=== PATIENT | female | born 1950 | race Caucasian/White ===

== ENCOUNTER 2020-02-21 18:33 | Inpatient (IN) | payer MEDICARE, BC ==
[~2020-02-21] VITALS: Ht 170.2 cm; Wt 75.3 kg
--- NOTE | 2020-02-21 19:07 | NUR ---
received report from REBECCA Chaudhary pt in bed, awake A/Ox2. able to speak in complete sentences respirations even and unlabored no s/s of distress safety precaution in place. bed locked, lowest position. Instructed pt to call nurse for assistance will continue to monitor
--- NOTE | 2020-02-21 19:14 | NUR ---
Called for bed. [address]
[2020-02-21] MEDS ORDERED: IBUPROFEN 600 MG TABLET ONE (19:28)
[2020-02-21] MEDS ORDERED: ESCI10TA55 PO (19:30)
[2020-02-21] MEDS ORDERED: LORA2TAB95 PO (19:30)
[2020-02-21] MEDS ORDERED: ALBU8.5H8 INH (19:30)
[2020-02-21] MEDS ORDERED: SUCR1TAB PO ×2 (19:30)
[2020-02-21] MEDS ORDERED: QUET100T PO (19:30)
[2020-02-21] MEDS ORDERED: IBUP-1953 PO (19:30)
[2020-02-21] MEDS ORDERED: PANT40TA4 PO (19:30)
[2020-02-21] MEDS ORDERED: MONT10TA27 PO (19:30)
[2020-02-21] MEDS ORDERED: FOLI0.4T2 PO (19:30)
[2020-02-21] MEDS ORDERED: IBUPROFEN 600 MG TABLET PO ONE (19:30)
[2020-02-21] MEDS ORDERED: THIA100T74 PO (19:30)
--- NOTE | 2020-02-21 19:48 | NUR ---
Report given to REBECCA Julian
[2020-02-21 20:00] VITALS: BP 168/81
[2020-02-21] MEDS ORDERED: IBUPROFEN 400 MG TABLET PO PRN (20:00)
--- NOTE | 2020-02-21 20:09 | NUR ---
Pt. admitted to [facility] , under care of Dr. Mendez/EPIC: Magui, CIRCLE CUTTING SAW OPERATOR Belongs List completed. All belongings with pt aa/ox2. able to speak in complete sentences ambulatory with steady gait no s/s of distress transported pt via gurney
[2020-02-21 20:30] VITALS: BP 170/73
[2020-02-21] MEDS ORDERED: MAG HYDROX/AL HYDROX/SIMETH 30 ML LIQUID UDC PO PRN (20:45)
[2020-02-21] MEDS ORDERED: MAGNESIUM HYDROXIDE 30 ML LIQUID UDC PO PRN (20:45)
[2020-02-21] MEDS ORDERED: BLOOD SUGAR DIAGNOSTIC 1 EACH STRIP VI ONE (20:45)
[2020-02-21] MEDS: SUCRALFATE 1 G TABLET PO SCH (21:00)
[2020-02-21] MEDS: CLONAZEPAM 0.5 MG TABLET PO PRN (21:37)
--- NOTE | 2020-02-21 21:39 | NUR ---
Admission Note: 69 yr old female brought to MHU from ER via gurney by staff. Pt admitted on a 5150 for Grave Disability under the care of Dr Mendez and Lori Kilgore, MACHINE STAPLER VS stable. According to the hold, patient was taken to [facility] Emergency Room by a friend for intermittent psychosis and unable to provide care for self. Patient has a history of Bipolar disorder, depression, chronic lumbar radiculopathy s/p lumbar fusion, cirrhosis, Gerd /Barretts esophagus, heavy ETOH use, current smoker, COPD, chronic pain disorder. Patient was provided with Patient's Rights handbook, oriented to the unit as well as room. Plan of care initiated.
--- NOTE | 2020-02-21 21:45 | NUR ---
Upon admission face to face was done.Advisement was given .Patient appears to reflect what is written on the hold.Skin assessment done .Noted with multiple abrasions , skin tears and and skin discoloration to bilateral upper and lower extremities.Bruising noted to lower ext. Photos were taken.Dressing applied .Patient tolerated well.When Patient asked.Patient stated "she fell multiple time at home due to her drinking".Safety and fall precaution in place and Reassurance provided .Will continue to monitor.
[2020-02-21] MEDS ORDERED: SUCRALFATE 1 G TABLET ONE (22:16)
[2020-02-21] MEDS: ACETAMINOPHEN 325 MG TABLET PO PRN (23:05)
[2020-02-21] MEDS: TEMAZEPAM 7.5 MG CAPSULE PO PRN (23:05)
[2020-02-22] MEDS: CLONAZEPAM 0.5 MG TABLET PO PRN ×4 (02:14→21:39)
[2020-02-22] MEDS ORDERED: VITAMINS A AND D OINT TP ONE (03:06)
[2020-02-22] MEDS: IBUPROFEN 600 MG TABLET PO PRN ×4 (03:13→21:39)
[2020-02-22 07:30] VITALS: BP 180/88
[2020-02-22] MEDS: SUCRALFATE 1 G TABLET PO SCH ×3 (07:30→20:05)
--- NOTE | 2020-02-22 07:31 | NUR ---
patient slept for approx. 2.30 hrs through the night. She continue labile. Will continue to monitor.
[2020-02-22 07:47] LABS: BILIRUBIN,TOTAL 1.7 mg/dL (0.2-1.0); CREATININE 0.8 mg/dL (0.6-1.3); POTASSIUM 4.2 mmol/L (3.5-5.1); TOTAL PROTEIN, SERUM 7.9 g/dL (6.4-8.2)
[2020-02-22] MEDS: MONTELUKAST SODIUM 10 MG TABLET PO SCH (09:15)
[2020-02-22] MEDS: THIAMINE HCL 100 MG TABLET PO SCH (09:15)
[2020-02-22] MEDS: FOLIC ACID 1 MG TABLET PO SCH (09:15)
[2020-02-22] MEDS: PANTOPRAZOLE SODIUM 40 MG TABLET.DR PO SCH (09:15)
--- NOTE | 2020-02-22 10:27 | NUR ---
Social Work Initial Discharge Plan: Per patient, she reports that she lives alone at [address] [place] [id number]. This copywriter attemepted to contact patient's friend Kathy ([phone]) and was unavailable. This copywriter attempted to contact patient's ex-, but was unavailable. Per patient, she would like to return back home upon discharge. chamber worker will work with the patient and MD to arrange proper discharge plan.
--- NOTE | 2020-02-22 10:27 | NUR ---
Social Work Family Contact: This sports book writer attemepted to contact patient's friend Kathy ([phone]) and was unavailable. This sports book writer attempted to contact patient's ex-, but was unavailable.
--- NOTE | 2020-02-22 11:04 | NUR ---
Brief Substance Abuse Intervention: Patient was provided with a brief substance abuse intervention and referred to the following substance abuse programs: [facility] Substance Abuse Self-helpline ([phone]); [facility] [address] [place] [address] ([phone]); [facility] [address] [facility] [address] ([phone]); [facility] ([phone]); [facility] ([phone]); [facility] ([phone]); [facility] ([phone]).
--- NOTE | 2020-02-22 13:10 | NUR ---
AKIRA Individual Therapy Note: SW met with patient for brief individual counseling to address patient's presenting problem, patient presents depressed. Patient stated that she is depressed because her "ex- broke her heart and left due to him having cancer". Patient was tearful while this mortgage underwriter was conducting brief therapy. This mortgage underwriter actively listened and provided emotional support.
[2020-02-22] MEDS: ESCITALOPRAM OXALATE 10 MG TABLET PO SCH (13:44)
[2020-02-22 15:22] VITALS: BP 174/87
--- NOTE | 2020-02-22 16:02 | NUR ---
Gps/Door Patcher- Called Kindra Shepard , per patient she ihas the DPOA, instructed to fax paers to MHU. Per Kindra, patient had multiple falls at home, drug and alcohol abuse, . Kindra wants to talk to Airplane Pilot Supervisor she wants patient to have LPS., calls given to Airplane Pilot Supervisor.
--- NOTE | 2020-02-22 16:06 | NUR ---
Gps/Sod Cutter- Patient wants Angie Flores as the second inside sales person . Also patient requesting Michael Rangel as her 3rd contact [phone]. Informed patient we only need one inside sales person, pt. request them to be put on her records just in case per pt.
--- NOTE | 2020-02-22 16:14 | NUR ---
Social Work Family Contact: vegetable i farmworker spoke with patient's friend Kindra ([phone]) who stated she is the DPOA and will send this short story writer documents. Per Kindra, she stated that she would want to place patient at a SNF.
--- NOTE | 2020-02-22 16:31 | NUR ---
Gps/Ice Bag Assembler- Patient able to take a shower this pm, Less agressive this pm, when decanoate 50 mg IM was administered and ordered to her [facility]..
[2020-02-22] MEDS: NICOTINE 14 MG/24HR PATCH TD SCH (17:29)
[2020-02-22 20:00] VITALS: BP 143/68
--- NOTE | 2020-02-22 20:00 | NUR ---
RECEIVED PATIENT IN THE DAY ROOM. SHE IS NOTED A/O X 2. SHE IS NOTED EASILY IRRITABLE. ATTENTION SEEKER. LABILE MULTIPLE PSYCHOSOMATIC. PATIENT REQUIRED MULTIPLE REDIRECTION, MULTIPLE REASSURANCE. V/S STABLE. PATIENT IS REASSURED FOR HER SAFETY, SAFETY AND FALL PRECAUTION IN PLACE. WILL CONTINUE TO MONITOR.
[2020-02-22] MEDS ORDERED: QUETIAPINE FUMARATE 100 MG TABLET PO SCH (21:00)
[2020-02-22] MEDS: TEMAZEPAM 7.5 MG CAPSULE PO PRN (22:55)
[2020-02-23] MEDS: ACETAMINOPHEN 325 MG TABLET PO PRN ×2 (00:01→15:45)
[2020-02-23] MEDS: IBUPROFEN 600 MG TABLET PO PRN ×3 (03:49→20:38)
[2020-02-23] MEDS: CLONAZEPAM 0.5 MG TABLET PO PRN ×2 (03:49→13:30)
[2020-02-23 07:30] VITALS: BP 160/75
[2020-02-23] MEDS: SUCRALFATE 1 G TABLET PO SCH ×3 (08:14→20:36)
[2020-02-23] MEDS: PANTOPRAZOLE SODIUM 40 MG TABLET.DR PO SCH (08:15)
[2020-02-23] MEDS: ESCITALOPRAM OXALATE 10 MG TABLET PO SCH (08:15)
[2020-02-23] MEDS: FOLIC ACID 1 MG TABLET PO SCH (08:15)
[2020-02-23] MEDS: THIAMINE HCL 100 MG TABLET PO SCH (08:15)
[2020-02-23] MEDS: MONTELUKAST SODIUM 10 MG TABLET PO SCH (08:16)
[2020-02-23] MEDS: NICOTINE 14 MG/24HR PATCH TD SCH (08:19)
--- NOTE | 2020-02-23 11:21 | NUR ---
WOUND CARE CONSULT: PT PRESENTS WITH BRUISING/DISCOLORATIONS, DRY HEALED WOUNDS, LEFT ELBOW SKIN TEAR, BILATERAL KNEE ABRASIONS AND RT 2ND TOE DRY WOUND WITH SWELLING, ALL PRESENT ON ADMISSION. PT STATES THAT SHE FELL AT HOME. RECOMMEND DPM CONSULT FOR TOE. DR ROMERO NOTIFIED OF CONSULT REQUEST. RECOMMENDATIONS MADE FOR WOUND CARE AND SKIN PROTECTION. DISCUSSED WITH NURSING STAFF. WILL SEE PRN. PT IS CONTINENT AND AMBULATORY. WILL SEE PRN. MD IN AGREEMENT WITH PLAN OF CARE. Addendum: 02/23/20 at 1123 by ALTON MARCUM RN Amended: Links added.
--- NOTE | 2020-02-23 12:38 | NUR ---
Gps/Latisha Rn (Wound Care Nurse) in to see patient, Wound care to multiple abrasions to elbows, forearms , bilateral knees, sites cleansed with NS pat dry, triple abx top. applied as ordered. Patches of ecchymosis / bruising to her forearms and lower ext. skin care reviewed. .
--- NOTE | 2020-02-23 15:13 | NUR ---
Social Work Family Contact: granite worker spoke with patient's friend Kindra ([phone]) who DPOA paperworks. This commercial lines underwriter placed it in the chart.
--- NOTE | 2020-02-23 15:32 | NUR ---
Social Work Individual Note: This underwriter mortgage loan met with patient and stated that she has DPOA and the best option would be for her to go to a SNF. The patient agrees and wants a SNF.
[2020-02-23 16:00] VITALS: BP 164/83
[2020-02-23] MEDS: NEOMY/BACITRAC/POLYMI OINT 28.35 GM TUBE TOP SCH (17:18)
--- NOTE | 2020-02-23 18:09 | NUR ---
Gps/Die Welder- Received call from [facility]. per report patient is positive for MRSA nares, Charge Nurse Shannon was informed.. Called Lori Kilgore ASSISTANT EXECUTIVE HOUSEKEEPER, informed of the lab results as well as elevated blood pressures , orders received.
[2020-02-23 20:00] VITALS: BP 158/82
[2020-02-23] MEDS: LISINOPRIL 5 MG TABLET PO SCH (20:35)
[2020-02-23] MEDS: QUETIAPINE FUMARATE 100 MG TABLET PO SCH (20:37)
[2020-02-23] MEDS: MUPIROCIN 2% OINT 22 GM TUBE NS SCH (20:38)
[2020-02-23] MEDS: TEMAZEPAM 7.5 MG CAPSULE PO PRN (21:31)
[2020-02-24] MEDS: IBUPROFEN 600 MG TABLET PO PRN ×2 (05:23→18:31)
[2020-02-24] MEDS: SUCRALFATE 1 G TABLET PO SCH ×3 (06:36→20:29)
--- NOTE | 2020-02-24 06:43 | NUR ---
Patient reports sleeping well last night. Patient is compliant with medications and care. No SOB or respiratory distress noted. Patient complaining of pain in her lower back level /. PRN Motrin given per MD order. Will endorse to oncoming nurse for continuity of care
[2020-02-24 07:30] VITALS: BP 163/88
[2020-02-24] MEDS: NICOTINE 14 MG/24HR PATCH TD SCH (08:22)
[2020-02-24] MEDS: FOLIC ACID 1 MG TABLET PO SCH (08:23)
[2020-02-24] MEDS: PANTOPRAZOLE SODIUM 40 MG TABLET.DR PO SCH (08:23)
[2020-02-24] MEDS: ESCITALOPRAM OXALATE 10 MG TABLET PO SCH (08:23)
[2020-02-24] MEDS: MONTELUKAST SODIUM 10 MG TABLET PO SCH (08:23)
[2020-02-24] MEDS: LISINOPRIL 5 MG TABLET PO SCH (08:23)
[2020-02-24] MEDS: NEOMY/BACITRAC/POLYMI OINT 28.35 GM TUBE TOP SCH ×2 (08:26→16:35)
[2020-02-24] MEDS: MUPIROCIN 2% OINT 22 GM TUBE NS SCH ×2 (08:27→20:22)
[2020-02-24] MEDS: THIAMINE HCL 100 MG TABLET PO SCH (08:29)
[2020-02-24] MEDS: BACITRACIN/POLYMYXIN B OINT 15 GM TUBE TOP SCH (08:36)
[2020-02-24] MEDS: ACETAMINOPHEN 325 MG TABLET PO PRN ×2 (10:02→20:25)
[2020-02-24] MEDS: CLONAZEPAM 0.5 MG TABLET PO PRN (13:24)
[2020-02-24] MEDS: ALBUTEROL SULFATE 2.5 MG/3 ML NEBU NEB PRN (13:31)
--- NOTE | 2020-02-24 13:37 | NUR ---
Gps/Production Supervisor Trainee- Anxious, slight SOB noted, called for breathing treatment , RT.was called. Ice pack to her lower back pain applied.
[2020-02-24] MEDS: GABAPENTIN 100 MG CAPSULE PO SCH ×2 (14:02→16:32)
[2020-02-24 16:00] VITALS: BP 151/86
[2020-02-24] MEDS: QUETIAPINE FUMARATE 100 MG TABLET PO SCH (20:24)
[2020-02-24 21:41] VITALS: BP 169/79
[2020-02-24] MEDS: TEMAZEPAM 7.5 MG CAPSULE PO PRN (23:41)
--- NOTE | 2020-02-25 03:10 | NUR ---
RECEIVED PATIENT IN HER ROOM. NOTED EASILY IRRITABLE,AND ATTENTION SEEKER. LABILE MOOD WITH C/O DIFFERENT PSYCHOSOMATIC ILLNESS. HOWEVER COOPERATIVE WITH STAFF FOR HER CARE AND MEDICATIONS.REASSURED FOR HER SAFETY WITH SAFETY AND FALL PRECAUTIONS IN PLACE. VISUAL CHECKS MADE ON HER. WILL CONTINUE TO MONITOR.
[2020-02-25] MEDS: IBUPROFEN 600 MG TABLET PO PRN ×4 (03:25→21:21)
[2020-02-25] MEDS: SUCRALFATE 1 G TABLET PO SCH ×3 (06:31→20:11)
--- NOTE | 2020-02-25 06:50 | NUR ---
SLEPT FOR 6:45HOURS.
[2020-02-25 07:30] VITALS: BP 142/87
[2020-02-25] MEDS: ESCITALOPRAM OXALATE 10 MG TABLET PO SCH (08:13)
[2020-02-25] MEDS: GABAPENTIN 100 MG CAPSULE PO SCH ×3 (08:13→17:06)
[2020-02-25] MEDS: NICOTINE 14 MG/24HR PATCH TD SCH (08:13)
[2020-02-25] MEDS: PANTOPRAZOLE SODIUM 40 MG TABLET.DR PO SCH (08:14)
[2020-02-25] MEDS: THIAMINE HCL 100 MG TABLET PO SCH (08:14)
[2020-02-25] MEDS: FOLIC ACID 1 MG TABLET PO SCH (08:14)
[2020-02-25] MEDS: LISINOPRIL 5 MG TABLET PO SCH (08:15)
[2020-02-25] MEDS: NEOMY/BACITRAC/POLYMI OINT 28.35 GM TUBE TOP SCH ×2 (08:17→17:07)
[2020-02-25] MEDS: BACITRACIN/POLYMYXIN B OINT 15 GM TUBE TOP SCH (08:17)
[2020-02-25] MEDS: MUPIROCIN 2% OINT 22 GM TUBE NS SCH ×2 (08:18→20:11)
[2020-02-25] MEDS: MONTELUKAST SODIUM 10 MG TABLET PO SCH (08:19)
--- NOTE | 2020-02-25 13:07 | NUR ---
Gps/Technical Training Coordinator- Showered self after self up. Wound care to skin wounds, abrasion , scabs, to her extremities , 2x2 dressings to with boarder to elbows and large bandaid to smaller wounds , NS pat dry, triple abx. top. applied.. MRSA nares , encouraged to wear facial mask when out of her room,good handwashing .
[2020-02-25] MEDS: CLONAZEPAM 0.5 MG TABLET PO PRN ×2 (15:10→21:21)
[2020-02-25 16:00] VITALS: BP 138/69
--- NOTE | 2020-02-25 16:00 | NUR ---
Gps/Log Manager-Had breathing treatment ([facility]N) as requested , verbalized adequate relief from her SOB.
[2020-02-25] MEDS: ALBUTEROL SULFATE 2.5 MG/3 ML NEBU NEB PRN (16:02)
--- NOTE | 2020-02-25 18:48 | NUR ---
Gps/Lift Truck Mechanic- Patient requesting top. abx. to put in her vagina, per pt. she had problen , prolapse for many years, informed and discouraged pt, from applying anything, encouraged good neris-care with sof and water, unable to check periinium , maybe needed Medical intervention/OB gyne. , denies pain the area.
[2020-02-25] MEDS: ACETAMINOPHEN 325 MG TABLET PO PRN (19:54)
[2020-02-25 20:00] VITALS: BP 160/88
[2020-02-25] MEDS: QUETIAPINE FUMARATE 100 MG TABLET PO SCH (20:10)
--- NOTE | 2020-02-26 02:27 | NUR ---
RECEIVED PATIENT IN HER ROOM. NOTED EASILY IRRITABLE,AND ATTENTION SEEKER. LABILE MOOD WITH DIFFERENT C/O PSYCHOSOMATIC ILLNESS. HOWEVER COOPERATIVE WITH STAFF FOR HER CARE AND MEDICATIONS. REASSURED FOR HER SAFETY AND FALL PRECAUTIONS IN PLACE. VISUAL CHECKS MADE ON HER. WILL CONTINUE TO MONITOR.
[2020-02-26] MEDS: IBUPROFEN 600 MG TABLET PO PRN (03:49)
--- NOTE | 2020-02-26 06:39 | NUR ---
SLEPT FOR 5:15HOURS. WOKE UP IN THE NIGHT ACCUSING STAFF OF NOT TELLING HER THE TRUTH THAT WE WERE NOT AFFILIATED WITH [facility].IF SHE KNEW THIS SHE WOULD NOT HAVE COME AND WOULD HAVE EVN CRAWL TO [facility] DO[facility] UNTIL THEY TAKE HER IN.
[2020-02-26] MEDS: SUCRALFATE 1 G TABLET PO SCH ×3 (06:45→20:35)
[2020-02-26 07:30] VITALS: BP 131/72
--- NOTE | 2020-02-26 07:30 | NUR ---
GPS: received patient AOx3, patient awake in her bed noted that the patient has open wound no discharges in her both knee and also appears in her legs and elbows, patient on wound treatment and was seen by wound nurse, patient verbalizes pain with pain scale 7-8/10 chronic back pain and on pain medication, patient redirectable, denies and minimizes her symptoms, patient compliant with medication
[2020-02-26] MEDS: GABAPENTIN 100 MG CAPSULE PO SCH ×3 (08:31→16:06)
[2020-02-26] MEDS: FOLIC ACID 1 MG TABLET PO SCH (08:31)
[2020-02-26] MEDS: ESCITALOPRAM OXALATE 10 MG TABLET PO SCH (08:31)
[2020-02-26] MEDS: PANTOPRAZOLE SODIUM 40 MG TABLET.DR PO SCH (08:31)
[2020-02-26] MEDS: BACITRACIN/POLYMYXIN B OINT 15 GM TUBE TOP SCH (08:32)
[2020-02-26] MEDS: NEOMY/BACITRAC/POLYMI OINT 28.35 GM TUBE TOP SCH ×2 (08:32→16:06)
[2020-02-26] MEDS: MONTELUKAST SODIUM 10 MG TABLET PO SCH (08:33)
[2020-02-26] MEDS: NICOTINE 14 MG/24HR PATCH TD SCH (08:33)
[2020-02-26] MEDS: LISINOPRIL 5 MG TABLET PO SCH (08:34)
[2020-02-26] MEDS: MUPIROCIN 2% OINT 22 GM TUBE NS SCH ×2 (08:34→20:36)
[2020-02-26] MEDS: THIAMINE HCL 100 MG TABLET PO SCH (08:35)
[2020-02-26] MEDS: IBUPROFEN 800 MG TABLET PO PRN ×2 (10:47→18:21)
[2020-02-26] MEDS: ACETAMINOPHEN 325 MG TABLET PO PRN ×2 (13:41→20:41)
--- NOTE | 2020-02-26 14:37 | NUR ---
Social Work Family Contact: This engineering technical writer attempted to contact patient's VERONICAMIRIAM Arguelles ([phone]). This engineering technical writer contacted HARI Arguelles 3 times and was unavailable. This engineering technical writer was unable to leave a voicemail due to mailbox being full.
[2020-02-26 16:00] VITALS: BP 182/94
[2020-02-26] MEDS: CLONAZEPAM 0.5 MG TABLET PO PRN (20:42)
[2020-02-26 20:51] VITALS: BP 146/76
[2020-02-26] MEDS ORDERED: QUETIAPINE FUMARATE 100 MG TABLET PO SCH (21:00)
[2020-02-26] MEDS: TEMAZEPAM 7.5 MG CAPSULE PO PRN (23:50)
[2020-02-27] MEDS: IBUPROFEN 800 MG TABLET PO PRN ×3 (01:39→21:11)
--- NOTE | 2020-02-27 03:46 | NUR ---
RECEIVED PATIENT IN HER ROOM. NOTED EASILY IRRITABLE,SEEKS ATTENTION AND INTRUSIVE. MOOD IS LABILE WITH DIFFERENT C/O PSYCHOSOMATIC ILLNESS AND PAIN. MEDICATIONS GIVEN TO EASE HER PAIN. COOPERATIVE WITH STAFF FOR HER CARE AND MEDICATIONS. REASSURED FOR HER SAFETY AND FALL PRECAUTIONS IN PLACE. VISUAL CHECKS MADE ON HER. WILL CONTINUE TO MONITOR.
[2020-02-27] MEDS: CLONAZEPAM 0.5 MG TABLET PO PRN ×2 (05:02→13:08)
[2020-02-27] MEDS: SUCRALFATE 1 G TABLET PO SCH ×3 (06:40→20:26)
--- NOTE | 2020-02-27 07:00 | NUR ---
GPS: received patient AOx3, compliant with medication denies any SI and HI, patient calm cooperative, verbalizes pain, attended to reduce pain, prn meds given as ordered, wound dressing done will continue monitor
[2020-02-27 07:30] VITALS: BP 169/100
[2020-02-27] MEDS: MONTELUKAST SODIUM 10 MG TABLET PO SCH (08:03)
[2020-02-27] MEDS: GABAPENTIN 100 MG CAPSULE PO SCH ×3 (08:03→16:01)
[2020-02-27] MEDS: LISINOPRIL 5 MG TABLET PO SCH (08:03)
[2020-02-27] MEDS: PANTOPRAZOLE SODIUM 40 MG TABLET.DR PO SCH (08:03)
[2020-02-27] MEDS: FOLIC ACID 1 MG TABLET PO SCH (08:03)
[2020-02-27] MEDS: ESCITALOPRAM OXALATE 10 MG TABLET PO SCH (08:03)
[2020-02-27] MEDS: THIAMINE HCL 100 MG TABLET PO SCH (08:03)
[2020-02-27] MEDS: NEOMY/BACITRAC/POLYMI OINT 28.35 GM TUBE TOP SCH ×2 (08:04→16:01)
[2020-02-27] MEDS: BACITRACIN/POLYMYXIN B OINT 15 GM TUBE TOP SCH (08:04)
[2020-02-27] MEDS: NICOTINE 14 MG/24HR PATCH TD SCH (08:04)
[2020-02-27] MEDS: MUPIROCIN 2% OINT 22 GM TUBE NS SCH ×2 (08:04→20:35)
--- NOTE | 2020-02-27 09:27 | NUR ---
Social Work Family Contact: tool maintenance worker spoke with patient's HARI Arguelles ([phone]) for finances and she stated that pt requires a SNF and that it is not safe for her to go back home because she abuses drugs. Per HARI Arguelles, she stated that she will not pay for her rent.
--- NOTE | 2020-02-27 10:11 | NUR ---
Social Work Family Contact: Chief Human Resources Officer contacted patient's DPOA Kindra ([phone]) and left a voicemail to call back this software writer.
--- NOTE | 2020-02-27 10:48 | NUR ---
Social Work Family Contact: Regional Transportation Manager contacted patient's DPOA Kindra ([phone]) and shared that she will communicate with patient to help her transition to a prison. Per Kindra, she will touch base with this grant writer.
--- NOTE | 2020-02-27 11:25 | NUR ---
AKIRA Brief Substance Abuse Intervention: Patient was provided with a brief substance abuse intervention and referred to the following substance abuse programs: [facility] Substance Abuse Self-helpline ([phone]); [facility] [address] [place] [address] ([phone]); [facility] [address] [place] [address] ([phone]); [facility] ([phone]); [facility] ([phone]); [facility] ([phone]); [facility] ([phone]). Addendum: 02/27/20 at 1135 by AKIRA WHITE Disregard note
[2020-02-27 11:55] LABS: *BILIRUBIN,URIN NEGATIVE (NEGATIVE); *BLOOD, URINE NEGATIVE (NEGATIVE); *CLARITY,URINE CLEAR (CLEAR); *COLOR,URINE YELLOW (YELLOW); *KETONES,URINE NEGATIVE (NEGATIVE); LEUKOCYTE ESTERASE ,URINE NEGATIVE (NEGATIVE); NITRITE, URINE NEGATIVE (NEGATIVE); PH,URINE 6.5 (5.0-8.0); UGLUCOSE NEGATIVE (NEGATIVE)
[2020-02-27] MEDS: QUETIAPINE FUMARATE 25 MG TABLET PO SCH (15:18)
[2020-02-27] MEDS: ACETAMINOPHEN 325 MG TABLET PO PRN (15:18)
[2020-02-27 15:27] VITALS: BP 155/89
--- NOTE | 2020-02-27 18:10 | NUR ---
patient been calm cooperative, although needy and loud, patient compliant with medication, verbalizes that she felt a little dizzy with the medication, patient BP was 135/89 assisted to lay down and rest for a while, monitored for any untoward reaction, patient no sob no distress, MD aware will continue monitor
--- NOTE | 2020-02-27 18:23 | NUR ---
Called and spoke with Dr. Mendez re: patient experience with the medication, orders made, read back order and carried out, will continue monitor
[2020-02-27 20:09] VITALS: BP 127/80
[2020-02-27] MEDS ORDERED: QUETIAPINE FUMARATE 100 MG TABLET PO SCH (21:00)
[2020-02-27] MEDS: TEMAZEPAM 7.5 MG CAPSULE PO PRN (21:54)
[2020-02-28] MEDS: CLONAZEPAM 0.5 MG TABLET PO PRN (03:54)
--- NOTE | 2020-02-28 06:08 | NUR ---
GPS: Pt c/o her Seroquel and said she will not take another Seroquel again, refused po 100mg routine. Other routine medications given as order and tolerated well. PRN Restoril given at 4 per sleep, Motrin given at 2110, Klonopin at 353. Pt was restless, unable to sleep, and frequently walking within nursing station asking for ice water or food, swearing loudly often when redirected. Oriented pt to reality but pt will re-start behavior again. Will endorse to incoming nurse to f/up with .
--- NOTE | 2020-02-28 06:38 | NUR ---
Pt slept only about 1.30mins at night. pt was very restless and walking within unit all night.
[2020-02-28 07:30] VITALS: BP 176/83
[2020-02-28] MEDS: QUETIAPINE FUMARATE 25 MG TABLET PO SCH (09:02)
[2020-02-28] MEDS: BACITRACIN/POLYMYXIN B OINT 15 GM TUBE TOP SCH (09:02)
[2020-02-28] MEDS: LIDOCAINE 5% PATCH TD SCH (09:02)
[2020-02-28] MEDS: ESCITALOPRAM OXALATE 10 MG TABLET PO SCH (09:02)
[2020-02-28] MEDS: GABAPENTIN 100 MG CAPSULE PO SCH ×3 (09:02→17:19)
[2020-02-28] MEDS: NICOTINE 14 MG/24HR PATCH TD SCH (09:02)
[2020-02-28] MEDS: THIAMINE HCL 100 MG TABLET PO SCH (09:02)
[2020-02-28] MEDS: PANTOPRAZOLE SODIUM 40 MG TABLET.DR PO SCH (09:02)
[2020-02-28] MEDS: FOLIC ACID 1 MG TABLET PO SCH (09:02)
[2020-02-28] MEDS: MUPIROCIN 2% OINT 22 GM TUBE NS SCH ×2 (09:03→20:07)
[2020-02-28] MEDS: IBUPROFEN 800 MG TABLET PO PRN (09:03)
[2020-02-28] MEDS: MONTELUKAST SODIUM 10 MG TABLET PO SCH (09:03)
[2020-02-28] MEDS: LISINOPRIL 5 MG TABLET PO SCH (09:05)
[2020-02-28] MEDS: NEOMY/BACITRAC/POLYMI OINT 28.35 GM TUBE TOP SCH ×2 (09:08→17:19)
[2020-02-28] MEDS: SUCRALFATE 1 G TABLET PO SCH ×3 (09:09→20:02)
--- NOTE | 2020-02-28 12:40 | NUR ---
The patient is having lunch. REBECCA Geiger told the tech to come back an hour later.
[2020-02-28 12:58] LABS: CREATININE 0.7 mg/dL (0.6-1.3); POTASSIUM 4.5 mmol/L (3.5-5.1); TOTAL PROTEIN, SERUM 7.1 g/dL (6.4-8.2)
[2020-02-28 13:12] LABS: BASOPHILS % (AUTO) 0.8 % (0.0-2.0); EOSINOPHILS % (AUTO) 0.8 % (0.0-7.0); HEMATOCRIT 38.1 % (31.2-41.9); HEMOGLOBIN 12.6 g/dL (10.9-14.3); LYMPHOCYTES # (AUTO) 0.7 K/uL (20.0-40.0); MEAN CORPUSCULAR HEMOGLOBIN 30.8 uug (24.7-32.8); MEAN CORPUSCULAR HGB CONC 33 g/dL (32.3-35.6); MEAN CORPUSCULAR VOLUME 93.1 fL (75.5-95.3); MONOCYTES # (AUTO) 0.4 K/uL (2.0-10.0); NEUTROPHILS # (AUTO) 3.5 K/uL (1.8-8.9); NEUTROPHILS % (AUTO) 75.4 % (38.5-71.5); PLATELET COUNT (AUTO) 190 K/uL (179-408); RED BLOOD CELL COUNT(AUTO) 4.09 MIL/uL (3.63-4.92); WHITE BLOOD COUNT (AUTO) 4.7 K/uL (3.8-11.8)
--- NOTE | 2020-02-28 14:12 | NUR ---
Social Work Individual Therapy: This technical writer attempted to discuss discharge plan, pt refused to talk to this technical writer and has been refusing to discharge to a facility upon dc.
--- NOTE | 2020-02-28 14:13 | NUR ---
Social Work Family Contact: Polls Or Surveys Interviewer contacted patient's DPOA Kindra whitten ([phone]) and shared that she will communicate with patient to help her transition to a assisted. However, per Kindra she stated that pt is going to refuse and if she does it is fine she can return back home. But, would want this assembly instructions writer to encourage pt to go to a nursing facility upon dc.
--- NOTE | 2020-02-28 14:23 | NUR ---
Social Work Firearms Report: Program Arranger completed and submitted a [employer] firearms report for 5150 grave disability certification. A copy of report has been placed in patient chart.
[2020-02-28] MEDS: HYDROCODONE/APAP 10-325 MG TABLET PO PRN (15:04)
[2020-02-28 16:00] VITALS: BP 163/78
[2020-02-28 18:30] VITALS: BP 129/94
[2020-02-28] MEDS: ACETAMINOPHEN 325 MG TABLET PO PRN (19:46)
[2020-02-28 20:10] VITALS: BP 167/74
[2020-02-28] MEDS: CLONIDINE HCL 0.1 MG TABLET PO PRN (20:44)
[2020-02-28] MEDS ORDERED: OLANZAPINE 2.5 MG TABLET PO SCH (21:00)
[2020-02-28 22:00] VITALS: BP 131/59
[2020-02-28] MEDS: TEMAZEPAM 7.5 MG CAPSULE PO PRN (23:15)
[2020-02-29] MEDS: IBUPROFEN 800 MG TABLET PO PRN (03:12)
[2020-02-29] MEDS: CLONAZEPAM 0.5 MG TABLET PO PRN ×2 (03:12→20:01)
[2020-02-29] MEDS: HYDROCODONE/APAP 10-325 MG TABLET PO PRN ×3 (05:49→22:28)
[2020-02-29] MEDS: SUCRALFATE 1 G TABLET PO SCH ×3 (07:06→20:57)
[2020-02-29 07:30] VITALS: BP 159/76
--- NOTE | 2020-02-29 08:30 | NUR ---
Social Work Discharge Note: Patient will be discharged to [facility] [address] [place] [address] ([phone]). Please arrange transportation for patient at 12:00pm. Spoke with Jm, Admin Coordinator at the facility who states they are ready to accept the patient today. Patients family is aware and agreeable with discharge plan. Patients daughter Padmini ([phone]) and Junior son ([phone]) is also aware and agreeable. Patient is aware and agreeable with discharge plans and presents with calm mood and euthymic affect. Patient is alert and oriented x1-2, is unable to plan for self-care, however, would like to continue receiving care at [facility]. Patient denies any suicidal or homicidal ideation. Patient will follow-up at the facility with (Psychiatrist) Dr. May and (Internet Security Specialist) Dr. Lehman. Patient presents with euthymic mood and congruent affect. Addendum: 02/29/20 at 1535 by AKIRA WHITE wrong patient
[2020-02-29] MEDS: PANTOPRAZOLE SODIUM 40 MG TABLET.DR PO SCH (08:43)
[2020-02-29] MEDS: GABAPENTIN 100 MG CAPSULE PO SCH ×3 (08:43→17:03)
[2020-02-29] MEDS: THIAMINE HCL 100 MG TABLET PO SCH (08:43)
[2020-02-29] MEDS: LISINOPRIL 5 MG TABLET PO SCH (08:43)
[2020-02-29] MEDS: MONTELUKAST SODIUM 10 MG TABLET PO SCH (08:44)
[2020-02-29] MEDS: MUPIROCIN 2% OINT 22 GM TUBE NS SCH ×2 (08:44→20:58)
[2020-02-29] MEDS: FOLIC ACID 1 MG TABLET PO SCH (08:44)
[2020-02-29] MEDS: ESCITALOPRAM OXALATE 10 MG TABLET PO SCH (08:44)
[2020-02-29] MEDS: LIDOCAINE 5% PATCH TD SCH (08:44)
[2020-02-29] MEDS: NICOTINE 14 MG/24HR PATCH TD SCH (08:45)
[2020-02-29] MEDS: BACITRACIN/POLYMYXIN B OINT 15 GM TUBE TOP SCH (08:46)
[2020-02-29] MEDS: NEOMY/BACITRAC/POLYMI OINT 28.35 GM TUBE TOP SCH ×2 (08:46→17:04)
[2020-02-29] MEDS: ACETAMINOPHEN 325 MG TABLET PO PRN (10:55)
--- NOTE | 2020-02-29 15:37 | NUR ---
Social Work Coordination of Care: This song writer contacted Dr. Newton and arranged an appointment. Patient will follow up with (psychiatrist) Dr. Newton at [address] [address]; ([phone]) [facility] on March 07 at 2PM
--- NOTE | 2020-02-29 15:45 | NUR ---
Social Work Coordination of Care: This designer/writer contacted Dr. Newton faxed patient's clinicals ([phone]).
[2020-02-29 16:00] VITALS: BP 154/74
--- NOTE | 2020-02-29 16:18 | NUR ---
Gps/Dry Charge Process Attendant- Easily gets anxious, remains needy, kept asking whats' next mediciane she can have. Ice pack to lower back refiles x3 , claimed it helps her back pain. Lidoderm patch not doing much about her pain. . Pacing back and forth the hallway. . Noted patient can get her roommate anxious, r/t patient instigate at times and tends to argue.. Encouraged to attend her group therapy.
[2020-02-29] MEDS: CLONIDINE HCL 0.1 MG TABLET PO PRN (20:36)
[2020-02-29] MEDS: OLANZAPINE 2.5 MG TABLET PO SCH (20:57)
[2020-02-29 21:31] VITALS: BP 138/79
--- NOTE | 2020-03-01 06:19 | NUR ---
PATIENT SLEPT FOR APPROX. 5.15HRS THROUGH THE NIGHT. REMAINS COMPLIANT WITH MEDICATION REGIMENT.
[2020-03-01] MEDS: SUCRALFATE 1 G TABLET PO SCH ×3 (06:44→20:12)
[2020-03-01 07:30] VITALS: BP 154/87
[2020-03-01] MEDS: HYDROCODONE/APAP 10-325 MG TABLET PO PRN ×3 (08:23→20:16)
[2020-03-01] MEDS: ESCITALOPRAM OXALATE 10 MG TABLET PO SCH (09:12)
[2020-03-01] MEDS: FOLIC ACID 1 MG TABLET PO SCH (09:12)
[2020-03-01] MEDS: LISINOPRIL 5 MG TABLET PO SCH (09:12)
[2020-03-01] MEDS: PANTOPRAZOLE SODIUM 40 MG TABLET.DR PO SCH (09:12)
[2020-03-01] MEDS: THIAMINE HCL 100 MG TABLET PO SCH (09:12)
[2020-03-01] MEDS: GABAPENTIN 100 MG CAPSULE PO SCH ×3 (09:12→16:50)
[2020-03-01] MEDS: MONTELUKAST SODIUM 10 MG TABLET PO SCH (09:12)
[2020-03-01] MEDS: LIDOCAINE 5% PATCH TD SCH (09:13)
[2020-03-01] MEDS: NICOTINE 14 MG/24HR PATCH TD SCH (09:13)
[2020-03-01] MEDS: MUPIROCIN 2% OINT 22 GM TUBE NS SCH (09:13)
[2020-03-01] MEDS: BACITRACIN/POLYMYXIN B OINT 15 GM TUBE TOP SCH (09:13)
[2020-03-01] MEDS: NEOMY/BACITRAC/POLYMI OINT 28.35 GM TUBE TOP SCH ×2 (09:13→16:51)
--- NOTE | 2020-03-01 15:13 | NUR ---
Social Work Discharge Plan: charhouse worker faxed patient's clinicals ([phone]) and this feature writer spoke with [facility] who accepted pt at [facility].
--- NOTE | 2020-03-01 15:27 | NUR ---
Social Work Individual Therapy: This grant writer spoke with patient and discussed patient's discharge plan. Patient agreed to transition to [facility] Wednesday.
--- NOTE | 2020-03-01 15:30 | NUR ---
Social Work Family Contact: Black Jack Dealer contacted patient's DPOA Kindra whitten ([phone]) left a voicemail that patient will be discharged Wednesday and she agrees to transition to a [facility] called [facility].
[2020-03-01 16:00] VITALS: BP 176/67
[2020-03-01] MEDS: CLONAZEPAM 0.5 MG TABLET PO PRN (16:49)
[2020-03-01] MEDS: OLANZAPINE 2.5 MG TABLET PO SCH (20:13)
[2020-03-01 20:38] VITALS: BP 171/85
[2020-03-01] MEDS: TEMAZEPAM 7.5 MG CAPSULE PO PRN (22:29)
--- NOTE | 2020-03-02 06:02 | NUR ---
GPS/ Pt A/OX3, denied SI, or feelings of hurting self or others. Pt calmer today, able to relate needs. Pt cooperative with routine and PRN pain meds. Denied abnormal or side effect with meds. No excessive agitation noted, pt noted with frequent needs to ask for stuffs from staffs. Also pt behaved appropriate when roommate was calling her bad names. No aggression and was able to control her mood. PRN was administered for sleep noted effect. Continue monitor pt with Q/15mins head count.
[2020-03-02] MEDS: HYDROCODONE/APAP 10-325 MG TABLET PO PRN ×3 (06:49→18:54)
[2020-03-02 07:30] VITALS: BP 163/74
--- NOTE | 2020-03-02 08:00 | NUR ---
Sitting on the chair, calm and compliant with taking medications
[2020-03-02] MEDS: SUCRALFATE 1 G TABLET PO SCH ×3 (09:47→20:25)
[2020-03-02] MEDS: FOLIC ACID 1 MG TABLET PO SCH (09:48)
[2020-03-02] MEDS: GABAPENTIN 100 MG CAPSULE PO SCH ×3 (09:49→16:47)
[2020-03-02] MEDS: PANTOPRAZOLE SODIUM 40 MG TABLET.DR PO SCH (09:49)
[2020-03-02] MEDS: LISINOPRIL 5 MG TABLET PO SCH (09:49)
[2020-03-02] MEDS: ESCITALOPRAM OXALATE 10 MG TABLET PO SCH (09:49)
[2020-03-02] MEDS: LIDOCAINE 5% PATCH TD SCH (09:50)
[2020-03-02] MEDS: MONTELUKAST SODIUM 10 MG TABLET PO SCH (09:50)
[2020-03-02] MEDS: NEOMY/BACITRAC/POLYMI OINT 28.35 GM TUBE TOP SCH ×2 (09:50→16:47)
[2020-03-02] MEDS: THIAMINE HCL 100 MG TABLET PO SCH (09:50)
[2020-03-02] MEDS: NICOTINE 14 MG/24HR PATCH TD SCH (09:50)
[2020-03-02] MEDS: BACITRACIN/POLYMYXIN B OINT 15 GM TUBE TOP SCH (09:52)
--- NOTE | 2020-03-02 12:30 | NUR ---
Complaining of back pain, PRN medications given
--- NOTE | 2020-03-02 15:19 | NUR ---
Walking in the hallway, happy, verbalized feeling okay.
[2020-03-02 16:00] VITALS: BP 167/82
[2020-03-02] MEDS: CLONIDINE HCL 0.1 MG TABLET PO PRN (16:47)
[2020-03-02] MEDS: CLONAZEPAM 0.5 MG TABLET PO PRN (17:02)
--- NOTE | 2020-03-02 17:05 | NUR ---
Feeling anxious. Klonopin PRN given as ordered
--- NOTE | 2020-03-02 18:55 | NUR ---
Complaining of back pain, PRN medication given.
[2020-03-02] MEDS: OLANZAPINE 2.5 MG TABLET PO SCH (20:25)
[2020-03-02 20:36] VITALS: BP 154/74
[2020-03-02] MEDS: TEMAZEPAM 7.5 MG CAPSULE PO PRN (22:05)
[2020-03-03] MEDS: HYDROCODONE/APAP 10-325 MG TABLET PO PRN ×4 (02:19→22:31)
[2020-03-03] MEDS: SUCRALFATE 1 G TABLET PO SCH ×3 (06:13→21:18)
--- NOTE | 2020-03-03 08:00 | NUR ---
Discussed plan of care with pt regarding proper pain and anxiety management. Pt agreeable with plan of care. PT denies any complain of pain.
[2020-03-03 08:08] VITALS: BP 148/72
[2020-03-03] MEDS: FOLIC ACID 1 MG TABLET PO SCH (08:27)
[2020-03-03] MEDS: ESCITALOPRAM OXALATE 10 MG TABLET PO SCH (08:28)
[2020-03-03] MEDS: LIDOCAINE 5% PATCH TD SCH (08:28)
[2020-03-03] MEDS: NICOTINE 14 MG/24HR PATCH TD SCH (08:28)
[2020-03-03] MEDS: GABAPENTIN 100 MG CAPSULE PO SCH ×3 (08:28→16:25)
[2020-03-03] MEDS: THIAMINE HCL 100 MG TABLET PO SCH (08:31)
[2020-03-03] MEDS: PANTOPRAZOLE SODIUM 40 MG TABLET.DR PO SCH (08:32)
[2020-03-03] MEDS: MONTELUKAST SODIUM 10 MG TABLET PO SCH (08:32)
[2020-03-03] MEDS: BACITRACIN/POLYMYXIN B OINT 15 GM TUBE TOP SCH (08:33)
[2020-03-03] MEDS: NEOMY/BACITRAC/POLYMI OINT 28.35 GM TUBE TOP SCH ×2 (08:33→16:26)
[2020-03-03] MEDS: LISINOPRIL 5 MG TABLET PO SCH (08:34)
--- NOTE | 2020-03-03 11:30 | NUR ---
Pt c/p vaginal pain. Hospitalist notified. New ordered Monistat for tonight.
[2020-03-03] MEDS ORDERED: FLUCONAZOLE 100 MG TABLET PO ONE (12:45)
[2020-03-03] MEDS: IBUPROFEN 800 MG TABLET PO PRN (12:55)
[2020-03-03 15:41] VITALS: BP 147/62
[2020-03-03] MEDS: CLONAZEPAM 0.5 MG TABLET PO PRN (16:33)
--- NOTE | 2020-03-03 16:33 | NUR ---
Pt anxious about another patient coming in and out of her room. "shes starting to agitate me. I need something to calm me down. I done with her." Decreased stimuli inffective. KLonopin given for agitation
--- NOTE | 2020-03-03 18:45 | NUR ---
Plan of care effective. Pt is in no acute distress.
[2020-03-03 20:10] VITALS: BP 146/70
[2020-03-03] MEDS: OLANZAPINE 2.5 MG TABLET PO SCH (21:17)
[2020-03-03] MEDS: MICONAZOLE NITRATE 2% VAG CREA 45 GM TUBE VG SCH (21:18)
[2020-03-04] MEDS: CLONAZEPAM 0.5 MG TABLET PO PRN ×3 (04:14→22:50)
[2020-03-04] MEDS: HYDROCODONE/APAP 10-325 MG TABLET PO PRN ×4 (04:37→22:50)
[2020-03-04] MEDS: SUCRALFATE 1 G TABLET PO SCH ×3 (06:38→20:46)
--- NOTE | 2020-03-04 07:20 | NUR ---
patient slept for approx 5 hrs through the night. continue with mood swings. pt is redirectable. will continue to monitor.
[2020-03-04 07:30] VITALS: BP 123/66
[2020-03-04] MEDS: GABAPENTIN 100 MG CAPSULE PO SCH ×3 (09:02→16:48)
[2020-03-04] MEDS: LIDOCAINE 5% PATCH TD SCH (09:02)
[2020-03-04] MEDS: ESCITALOPRAM OXALATE 10 MG TABLET PO SCH (09:02)
[2020-03-04] MEDS: NICOTINE 14 MG/24HR PATCH TD SCH (09:02)
[2020-03-04] MEDS: THIAMINE HCL 100 MG TABLET PO SCH (09:02)
[2020-03-04] MEDS: PANTOPRAZOLE SODIUM 40 MG TABLET.DR PO SCH (09:02)
[2020-03-04] MEDS: FOLIC ACID 1 MG TABLET PO SCH (09:02)
[2020-03-04] MEDS: BACITRACIN/POLYMYXIN B OINT 15 GM TUBE TOP SCH (09:03)
[2020-03-04] MEDS: LISINOPRIL 5 MG TABLET PO SCH (09:03)
[2020-03-04] MEDS: MONTELUKAST SODIUM 10 MG TABLET PO SCH (09:03)
[2020-03-04] MEDS: NEOMY/BACITRAC/POLYMI OINT 28.35 GM TUBE TOP SCH ×2 (09:04→16:49)
--- NOTE | 2020-03-04 15:00 | NUR ---
DPOA Contact: Ux Engineer contacted patient's DPOA Kindra ([phone]) and informed her that the pt is going to be discharged to SNF tomorrow and she stated that she will be dropping by later in the afternoon to drop off some clothes for the pt.
[2020-03-04 16:00] VITALS: BP 136/83
--- NOTE | 2020-03-04 16:00 | NUR ---
Pt finished group activity. Wound care done. Noted open wound on right lower leg noted yellow sloughing noted. triple abx applied as ordered on little dry scabs on arms and legs.
[2020-03-04 20:00] VITALS: BP 158/68
[2020-03-04] MEDS: OLANZAPINE 2.5 MG TABLET PO SCH (20:46)
[2020-03-04] MEDS: MICONAZOLE NITRATE 2% VAG CREA 45 GM TUBE VG SCH (20:48)
[2020-03-04] MEDS: IBUPROFEN 800 MG TABLET PO PRN (21:14)
[2020-03-05] MEDS: TEMAZEPAM 7.5 MG CAPSULE PO PRN (00:09)
--- NOTE | 2020-03-05 04:55 | NUR ---
GPS/ Pt a/ox3, no new changes noted, pt on continue treatment for wound and skin, current orders regimen adhere. Pt is restless, and frequently demanding for mediations and stuffs. Understand and re-directable. All due medications administered and tolerated. Pt c/o anxiousness and pain on generalize body. Motrin 2113 given, Klonopin given 2250, Gilman at 2250, and Restoril at 0009. Pt will continue asking for more medications. Frequent ambulating, safety advised and neris-care advised.
[2020-03-05] MEDS: CLONAZEPAM 0.5 MG TABLET PO PRN ×2 (05:08→12:03)
[2020-03-05] MEDS: HYDROCODONE/APAP 10-325 MG TABLET PO PRN ×2 (05:09→12:04)
[2020-03-05 08:44] VITALS: BP 150/72
[2020-03-05] MEDS: FOLIC ACID 1 MG TABLET PO SCH (08:47)
[2020-03-05] MEDS: GABAPENTIN 100 MG CAPSULE PO SCH ×2 (08:47→12:03)
[2020-03-05] MEDS: ESCITALOPRAM OXALATE 10 MG TABLET PO SCH (08:47)
[2020-03-05] MEDS: NICOTINE 14 MG/24HR PATCH TD SCH (08:47)
[2020-03-05] MEDS: LIDOCAINE 5% PATCH TD SCH (08:47)
[2020-03-05 08:48] VITALS: BP 150/72
[2020-03-05] MEDS: SUCRALFATE 1 G TABLET PO SCH (08:48)
[2020-03-05] MEDS: LISINOPRIL 5 MG TABLET PO SCH (08:48)
--- NOTE | 2020-03-05 08:48 | NUR ---
Discharge Note: Pt was discharged to [facility] located at [address] [place] [address] to Room 14B. Pt was transported via [facility] at 1PM. Pts HARI Arguelles ([phone]), was informed of the discharge. Upon discharge, the pt appeared to be in a euthymic mood and presented with a calm affect. Pt appeared to be oriented x4 (time, place, self and situation). Pt denied both suicidal and homicidal ideation as well as auditory and visual hallucinations. Pt appears to be ambulatory with a steady gait. Pt appeared to be well groomed and appropriately dressed. Pt will be under the care of psychiatrist, Dr. Mendez, [place] at [address] [place] [address]; [phone] and will be under the care of vacuum bottle assembler, Dr Crabtree, [address] [address]; . The multidisciplinary exit care form was done, printed, signed, and given to the patient.
[2020-03-05] MEDS: PANTOPRAZOLE SODIUM 40 MG TABLET.DR PO SCH (08:49)
[2020-03-05] MEDS: NEOMY/BACITRAC/POLYMI OINT 28.35 GM TUBE TOP SCH (08:50)
[2020-03-05] MEDS: BACITRACIN/POLYMYXIN B OINT 15 GM TUBE TOP SCH (08:50)
[2020-03-05] MEDS: MONTELUKAST SODIUM 10 MG TABLET PO SCH (08:51)
[2020-03-05] MEDS: THIAMINE HCL 100 MG TABLET PO SCH (08:55)
--- NOTE | 2020-03-05 13:33 | NUR ---
Discharged patient to [facility] SN[facility] , Pt was transported via Ambulance at 1PM. Pts DOPA Kindra , was informed of the discharged , all personal belonging return to patient ,vss.
== END 2020-03-05 13:42 | DRG 885 ==
LOC: ER 18:33 → GPS 19:50
PROVIDERS: ADMIT Psychiatry & Neurology Psychiatry; ATTEND Nurse Practitioner Acute Care
PROC: 0HBRXZZ Excision of Toe Nail, External Approach (ICD-10-PCS; principal; 2020-02-23)
DX: F33.3 Major depressive disorder, recurrent, severe with psychotic symptoms (principal); F01.50 Vascular dementia, unspecified severity, without behavioral disturbance, psychotic disturbance, mood disturbance, and anxiety; E87.1 Hypo-osmolality and hyponatremia; I48.91 Unspecified atrial fibrillation; J44.9 Chronic obstructive pulmonary disease, unspecified; K21.9 Gastro-esophageal reflux disease without esophagitis; F10.10 Alcohol abuse, uncomplicated; F17.210 Nicotine dependence, cigarettes, uncomplicated; G89.29 Other chronic pain; F41.9 Anxiety disorder, unspecified; I10 Essential (primary) hypertension; Z73.6 Limitation of activities due to disability; M79.672 Pain in left foot; M79.671 Pain in right foot; L60.3 Nail dystrophy; S90.414A Abrasion, right lesser toe(s), initial encounter; X58.XXXA Exposure to other specified factors, initial encounter; Y93.9 Activity, unspecified; Y92.89 Other specified places as the place of occurrence of the external cause; Z22.322 Carrier or suspected carrier of Methicillin resistant Staphylococcus aureus; I49.3 Ventricular premature depolarization; B37.3 Candidiasis of vulva and vagina
CPT/HCPCS: 36415; 85025; 93005; 93307; 93880; 94640; 94664; A4663